=== PATIENT | female | born 2000 | race Native Hawaiian/Other Pacific Islander ===

== ENCOUNTER 2021-01-16 04:15 | Emergency (ER) | payer OTHER | END 2021-01-16 06:15 | disposition home or self-care (01) | LOC: ED 04:15 | DX: N75.8 Other diseases of Bartholin's gland (principal); R10.2 Pelvic and perineal pain; Z32.01 Encounter for pregnancy test, result positive; F19.10 Other psychoactive substance abuse, uncomplicated | CPT/HCPCS: 80307; 81000; 81025; 96365; 96375; 99284; J0696; J1885 ==

== ENCOUNTER 2021-03-22 12:17 | Emergency (ER) | payer OTHER ==
[~2021-03-22] VITALS: Ht 157.5 cm; Wt 54.4 kg
[2021-03-22 13:08] LABS: PLATELET COUNT 158 K/uL (152-353)
[2021-03-22 13:22] LABS: POTASSIUM 2.9 mmol/L (3.6-5.2)
[2021-03-22 18:15] VITALS: BP 107/58; TEMP 98.2
== END 2021-03-22 18:15 | disposition home or self-care (01) ==
LOC: ED 12:17
PROVIDERS: Emergency Medicine Emergency Medical Services
DX: U07.1 COVID-19 (principal); O23.32 Infections of other parts of urinary tract in pregnancy, second trimester; Z3A.22 22 weeks gestation of pregnancy
CPT/HCPCS: 36415; 80053; 80307; 81000; 85007; 85027; 87077; 87086; 87088; 87186; 87635; 96360; 96361; 96365; 96375; 96376; 99284; J0696; J2930; U0003

== ENCOUNTER 2021-04-22 12:54 | Emergency (ER) | payer OTHER ==
[~2021-04-22] VITALS: Ht 157.5 cm; Wt 54.4 kg
[2021-04-22 12:54] VITALS: TEMP 98.4
[2021-04-22 13:33] LABS: PLATELET COUNT 210 K/uL (152-353)
[2021-04-22 13:49] LABS: PARTIAL THROMBOPLASTIN TIME 23.8 SECONDS (24.5-33.6)
[2021-04-22 13:56] LABS: POTASSIUM 3.8 mmol/L (3.6-5.2)
[2021-04-22 16:35] VITALS: BP 113/82
== END 2021-04-22 16:35 | disposition short-term general hospital (02) ==
LOC: ED 12:59
PROVIDERS: Hospitalist
DX: Z3A.26 26 weeks gestation of pregnancy (principal); O23.42 Unspecified infection of urinary tract in pregnancy, second trimester; R10.84 Generalized abdominal pain; Z20.822 Contact with and (suspected) exposure to COVID-19
CPT/HCPCS: 36415; 80053; 80307; 80320; 81000; 84702; 85027; 85610; 85730; 87077; 87086; 87088; 87186; 87635; 96360; 96365; 96366; 96376; 99284; J2270; J2405; J3475; J3490; U0003

== ENCOUNTER 2021-06-02 19:10 | Emergency (ER) | payer OTHER ==
[~2021-06-02] VITALS: Ht 157.5 cm; Wt 61.2 kg
[2021-06-02 20:15] LABS: PLATELET COUNT 241 K/uL (152-353)
[2021-06-02 20:21] LABS: POTASSIUM 3.8 mmol/L (3.6-5.2)
[2021-06-02 21:30] VITALS: BP 125/79; TEMP 98.9
== END 2021-06-02 21:30 | disposition home or self-care (01) ==
LOC: ED 19:10
PROVIDERS: Emergency Medicine
DX: O23.33 Infections of other parts of urinary tract in pregnancy, third trimester (principal); N39.0 Urinary tract infection, site not specified; R50.9 Fever, unspecified; K04.7 Periapical abscess without sinus; F15.90 Other stimulant use, unspecified, uncomplicated; Z3A.33 33 weeks gestation of pregnancy; Z86.16 Personal history of COVID-19
CPT/HCPCS: 36415; 80053; 80307; 81000; 85027; 87086; 87088; 87502; 87651; 96360; 96365; 96375; 99284; J0696; J2405

== ENCOUNTER 2022-09-16 12:43 | Emergency (ER) | payer OTHER ==
[~2022-09-16] VITALS: Ht 157.5 cm; Wt 56.2 kg
[2022-09-16 12:46] VITALS: TEMP 98.7
[2022-09-16 13:34] LABS: PLATELET COUNT 343 K/uL (152-353)
[2022-09-16 13:42] LABS: POTASSIUM 3.9 mmol/L (3.6-5.2)
[2022-09-16 14:02] LABS: PARTIAL THROMBOPLASTIN TIME 29.3 SECONDS (24.5-33.6)
[2022-09-16 16:45] VITALS: BP 115/68
== END 2022-09-16 16:45 | disposition left against medical advice (07) ==
LOC: ED 12:43
PROVIDERS: Emergency Medicine
DX: T39.011A Poisoning by aspirin, accidental (unintentional), initial encounter (principal); Z33.1 Pregnant state, incidental; Z53.29 Procedure and treatment not carried out because of patient's decision for other reasons; R10.84 Generalized abdominal pain; X58.XXXA Exposure to other specified factors, initial encounter; Y92.89 Other specified places as the place of occurrence of the external cause
CPT/HCPCS: 80053; 80143; 80179; 80307; 80320; 81002; 81025; 85027; 85610; 85730; 93005; 96365; 99283; 99284; J3490